=== PATIENT | female | born 1985 | race Caucasian/White ===

== ENCOUNTER → 2020-10-27 09:24 | Outpatient (CLI) | payer OTHER, SELFPAY ==
[2020-10-27 09:54] LABS: COVID19 -Nasal RAPID Negative (Negative)
== END ==
PROVIDERS: Family Provider Obstetrics & Gynecology; PCP Obstetrics & Gynecology; Visit Provider Physician Assistant
DX: J32.9 Chronic sinusitis, unspecified (principal); Z20.822 Contact with and (suspected) exposure to COVID-19
CPT/HCPCS: 87635

== ENCOUNTER → 2021-01-25 16:43 | Outpatient (CLI) | payer OTHER, SELFPAY ==
--- NOTE | 2021-01-25 16:44 | DI.RAD.S_ITS ---
PROCEDURE: XR KNEE LT 3V INDICATIONS: Progressive left anterior knee pain TECHNIQUE: 3 views of the knee were acquired. COMPARISON: None. FINDINGS: Bones: No fractures or dislocations. No suspicious bony lesions. Soft tissues: No joint effusion. No suspicious soft tissue calcifications. IMPRESSION: No trauma found, no effusion or loose body seen. Source of worsening left knee pain is not found. Dictated by: Arias Giron M.D. on 01/26/2021 at 9:11 Approved by: Arias Giron M.D. on 01/26/2021 at 9:12
[2021-01-25 18:30] LABS: C-Reactive Protein Quant < 0.5 mg/dL (<1.0)
[2021-01-25 18:42] LABS: Rheumatoid Factor < 8.6 IU/mL (<12.0)
[2021-01-25 21:02] LABS: Erythrocyte Sedimentation Rate 5 MM/HR (0-20)
[2021-01-28 21:11] LABS: CCP Antibodies IgG/IgA 5 units (0-19)
== END ==
PROVIDERS: Family Provider Obstetrics & Gynecology; PCP Family Medicine; Referring Provider Family Medicine; Visit Provider Family Medicine
DX: M25.562 Pain in left knee (principal); Z82.61 Family history of arthritis
CPT/HCPCS: 36415; 73562; 85651; 86140; 86200; 86430

== ENCOUNTER → 2021-05-10 10:41 | Outpatient (CLI) | payer OTHER, MEDICAID, SELFPAY ==
--- NOTE | 2021-05-10 10:42 | DI.US.S_ITS ---
PROCEDURE: US PELVIC COMPLETE INDICATIONS: ABNORMAL BLEEDING TECHNIQUE: Real-time scanning was performed of the pelvic organs, with image documentation. Additional endovaginal scanning was necessary due to incomplete visualization of the adnexal and endometrial structures by transabdominal scanning. COMPARISON: [facility], , PELVIC COMPLETE, 03/19/2014, 9:00. FINDINGS: Uterus: The uterine body measures 4.7 x 5.2 x 7.0 centimeters. The endometrial stripe complex measures up to 14 millimeters in double air thickness. No uterine mass. Ovaries: Simple cyst in the right ovary measuring up to 1.3 centimeters. Complex cyst with peripheral vascularity in the left ovary measuring 2.4 x 1.2 x 1.6 centimeters, likely a resolving hemorrhagic cyst or potentially corpus luteum cyst. Other: No pathologic free abdominal or pelvic fluid. IMPRESSION: Normal study. Dictated by: Chester Medina M.D. on 05/10/2021 at 11:31 Approved by: Chester Medina M.D. on 05/10/2021 at 11:34
== END ==
PROVIDERS: Family Provider Obstetrics & Gynecology; PCP Family Medicine; Referring Provider Family Medicine; Visit Provider Family Medicine
DX: N93.9 Abnormal uterine and vaginal bleeding, unspecified (principal); N94.6 Dysmenorrhea, unspecified; N92.0 Excessive and frequent menstruation with regular cycle; N83.292 Other ovarian cyst, left side; N83.291 Other ovarian cyst, right side
CPT/HCPCS: 76830; 76856

== ENCOUNTER → 2021-07-23 09:10 | Outpatient (CLI) | payer OTHER, MEDICAID, SELFPAY ==
[2021-07-23 10:57] LABS: Hematocrit 37.6 % (36-46); Hemoglobin 12.7 g/dL (12.0-16.0); Mean Corpuscular HGB Conc 33.7 % (30-36); Mean Corpuscular Hemoglobin 28.1 PG (26-34); Mean Corpuscular Volume 83.2 fL (80-100); Platelet Count 262 X10^3/uL (150-400); Red Blood Cell Count 4.52 X10^6/uL (4.0-5.2); Red Cell Distribution Width 13.8 % (11.6-14.8); White Blood Cell Count 3.9 X10^3/uL (4.5-11.0)
[2021-07-23 12:08] LABS: Free T4, Direct Thyroxine 0.88 ng/dL (0.78-2.19)
== END ==
PROVIDERS: Family Provider Obstetrics & Gynecology; PCP Family Medicine; Referring Provider Obstetrics & Gynecology; Visit Provider Obstetrics & Gynecology
DX: N92.1 Excessive and frequent menstruation with irregular cycle (principal); N93.9 Abnormal uterine and vaginal bleeding, unspecified
CPT/HCPCS: 36415; 84439; 84443; 85027

== ENCOUNTER → 2021-08-25 11:08 | Outpatient (CLI) | payer OTHER, MEDICAID, SELFPAY ==
[2021-08-25 13:56] LABS: COVID19 -Nasal RAPID Negative (Negative)
== END ==
PROVIDERS: Family Provider Obstetrics & Gynecology; PCP Family Medicine; Referring Provider Obstetrics & Gynecology; Visit Provider Obstetrics & Gynecology
DX: Z01.812 Encounter for preprocedural laboratory examination (principal); Z20.822 Contact with and (suspected) exposure to COVID-19
CPT/HCPCS: 87635; C9803

== ENCOUNTER 2021-08-26 12:28 | Day surgery (SDC) | payer OTHER, MEDICAID, SELFPAY ==
[2021-08-24 12:48] VITALS: BMI 24.5
[2021-08-26] VITALS (15 sets, daily range): BP systolic 95–121; BP diastolic 52–80; PULSE 69–98; RESP 10–29; TEMP 36.9–38.3; O2SAT 95–100; BMI 24.5
--- NOTE | 2021-08-26 | PATH_ITS ---
[facility] Accession Number: [id number] . 01 Material submitted: . uterus - CERVIX, UTERUS, BILATERAL FALLOPIAN TUBES . 02 Diagnosis: A. Designated as Cervix, Uterus, Bilateral Fallopian Tubes, Hysterectomy and Bilateral Salpingectomy: Late secretory phase endometrium with breakdown. Myometrium and uterine serosa within normal limits. Cervix with inflammation and reactive changes. Bilateral fallopian tubes with unilateral mild to moderate acute salpingitis, features of hydrosalpinx, and reactive changes. No evidence of dysplasia, neoplasia, or malignancy. . [facility] 08/31/2021 1711 Local . 02 Electronically signed: . Jillian Bergman MD, Pathologist NPI- [id number] . 01 Gross description: . The specimen is received in formalin, labeled with the patient's name and cervix, uterus, bilateral fallopian tubes, consists of a 72-gram, 7.2 cm (fundus to cervix) by 3.5 cm (anterior posterior) by 5.5 cm (cornu to cornu) uterus and cervix with attached, undesignated and bilateral fallopian tubes. The serosa is mcgill-brown, smooth and glistening. The ectocervical mucosa is mcgill-roman, smooth and glistening. The specimen is bivalved and it reveals a mcgill-roman smooth endometrial cavity which measures 3.5 x 1.5 cm. There is red-brown material present within the lumen and it likely represents blood. The myometrium is roman-white, trabeculated and smooth. Leiomyomata are not identified. Hemorrhagic foci suggestive of endometriosis are not definitively identified. The myometrium has a maximum thickness of 1.0 cm. The endocervical cavity is roman-pink and smooth measuring 1.5 x 0.5 cm. The cervical os measures 0.5 cm. The fallopian tubes measure 4.5 cm and 3.8 cm by 0.5 cm to 0.7 cm. The serosa is roman-brown and focally hemorrhagic. Sectioning reveals pinpoint lumen. Sections are submitted as follows: . A1: Anterior cervix. A2: Posterior cervix. A3-A4: Anterior endomyometrium. A5-A6: Posterior endomyometrium. A7-A8: Fallopian tubes with fimbria. ([id number]) /MRV 08/30/2021 1326 Local . 02 Pathologist provided ICD-10: R10.2, N92.0, N94.6, N70.01 . 02 CPT . 608445 Performed at: 01 [facility] [address] [place] [address] [id number] MD Paul Wu MD Phone: [phone] Performed at: [facility] [address] [place] [address] [id number] MD Fay Blank MD Phone: [phone]
--- NOTE | 2021-08-26 13:20 | SUR.OPER ---
Lithotomy on padded OR bed. Lombard Pad Positioner under torso. Head on pillow, arms padded and tucked at sides. Legs secured in padded yellow fins stirrups.
--- NOTE | 2021-08-26 13:25 | PM.PREOP ---
Pre-operative Note COVID-19 COVID-19 status: Negative Result date/Date tested (Pos, Neg/Pending): 08/25/21 Interval Note History & Physical reviewed/Exam performed by Physician: Yes Changes to H&P: No
[2021-08-26] MEDS: LACTATED RINGERS 1,000 ML 42 ML IV ×2 (13:28→15:09)
[2021-08-26] MEDS: CEFAZOLIN 2 GM/20 ML SYRINGE IV ×2 (14:02→20:04)
[2021-08-26] MEDS: BUPIVACAINE 0.5% (PF) 30 ML, EPINEPHrine 0.15 MG INJ (14:17)
[2021-08-26] MEDS: ROPIVACAINE 0.2% PF 2 MG/ML 10ML AMP 20 ML INJ (15:07)
--- NOTE | 2021-08-26 15:35 | P.OP_ITS ---
Operative Date/Time/Diagnoses Date of procedure: 08/26/21 Time of procedure: 14:15 Pre-op diagnosis: Menorrhagia Severe dysmenorrhea Chronic pelvic pain Post-op diagnosis: same Procedure & Clinicians Procedure: Procedures Operation Date: 08/26/21 13:30 Actual Procedure Side Surgeon p Laparoscopic Total Hysterectomy w/Bilateral Salpingectomy Martin Milligan MD Indications: Nidia is a 36-year-old , LMP 05/17/2021 who presents for evaluation with a long history of irregular and heavy menses associated with episodic severe pelvic pain which has been attributed to formation and rupture of ovarian cyst.? Her history dates back to 2009 through 2011 when she had multiple visits to [facility] due to severe episodic pain.? She had surgery in 2009 at [facility] at which time a fibroid was removed and an ovarian cystectomy was performed.? A 2nd and 3rd surgery were performed between 2009 [address] Naomi cifuentes at [facility] but no records of those surgeries are currently available for review.? She was however told that endometriosis was found at the time of those surgeries.? In July of 2012 she had an uneventful vaginal of her son and had no problems for a year to afterwards but in 2013 she began forming ovarian cysts on both sides and had multiple episodes of severe pain.? In 2015 she had her 2nd vaginal and since her had been doing reasonably well over the ensuing 3-4 years.? Her periods had been relatively regular and predictable but occasionally was having episodic I have with Cindy pain which could be quite severe at times.? Oral contraceptives have been attempted in the past to suppress her ovarian cyst formation but these attempts have been unsuccessful.? Periods remain regular and slow approximately March 2021 at which point she began passing bright red blood with clots and her bleeding has continued.? The patient's menstrual pain is severe, midline, and unrelieved with Tylenol or ibuprofen which upsets her stomach.? She has some deep dyspareunia but it is not severe and does not prevent intercourse.? Her l ateral pain is sudden in onset, sharp, and usually last 3-4 days after the sudden onset.? Neither of these pains are associated with any GI or or symptoms.? Pap 05/26/2021 is negative and EMBx performed 07/23/2021 is also negative.? Pelvic US performed 05/10/2021 shows: FINDINGS:? ?? Uterus:? The uterine body measures 4.7 x 5.2 x 7.0 centimeters.? The endometrial stripe complex measures up to 14 millimeters in double air thickness.? No uterine mass. ? Ovaries:? Simple cyst in the right ovary measuring up to 1.3 centimeters.? Complex cyst with peripheral vascularity in the left ovary measuring 2.4 x 1.2 x 1.6 centimeters, likely a resolving hemorrhagic cyst or potentially corpus luteum cyst. ? Other: ? No pathologic free abdominal or pelvic fluid. ? IMPRESSION:? Normal study. Options for further evaluation/management of her abnormal bleeding associated with extremely painful menses as well as the intermittent episodic pain attributed to ovarian cysts was discussed.? In a word, the patient wants definitive treatment.? The options of OC use, Mirena IUD and/or endometrial ablation, are unacceptable to the patient because no guarantee of definitive resolution of her bleeding and painful periods can be assured.? Instead the patient would very much prefer to have hysterectomy performed.? Or insofar as her episodic pelvic pain attributed to ovarian cysts, the patient would be content with removal of the ovaries but such a step would be drastic and was discouraged in favor of continued attempts to suppress the ovarian cycle via oral contraceptive use following hysterectomy should her pain persist.? In addition total laparoscopic hysterectomy will provide an opportunity to examine the pelvis and removed/destroyed any residual endometriosis which may be pre sent.? After full discussion of all available options the patient is insistent we proceed with total laparoscopic hysterectomy and bilateral salpingectomy with ovarian preservation.? Excision/destruction of endometrial implants would be performed at the same time should they be present.? The patient's surgery is scheduled for the [facility] on 08/26/2021 and she presents today for her scheduled surgery. Surgeon: [facility] Medical Director: Flaquita Luciano Anesthesia Type: General Operative Notes Findings: The uterus is normal in size and shape. Both the anterior and posterior cul-de-sac are normal with no evidence of pelvic endometriosis. The fallopian tubes appeared normal but there is peritubal adhesions involving the distal tube on the right as well as the right ovary consistent with prior pelvic inflammatory disease. Both ovaries appear normal but there is a 2 cm cyst in the left ovary which when punctured contained clear, light yellow fluid consistent with a corpus luteum cyst. The appendix is visibly normal. 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 The remainder of the abdomen and pelvis were normal to laparoscopic visualization Closure Type: primary Specimen(s): left tube, right tube and uterus Applied: catheter Estimated blood loss (mL): 150 Blood products transfused: none Procedure in detail: With the patient under satisfactory general endotracheal anesthesia in the modified dorsal lithotomy position, the perineum, vagina, and abdomen were prepped and draped in the usual fashion for total laparoscopic hysterectomy a pre-surgical safety time-out was then taken in accordance with [facility] Main OR protocols. Borden catheter was inserted in the bladder for drainage. A speculum was then inserted in the vagina and the cervix visualized. Cervix was grasped with a single-tooth tenaculum in the endocervical canal was dilated easily to 6 mm. A Mobile Shareholder uterine manipulator with a medium colpotomy cup was then placed and the tenaculum as well as the speculum removed from the vagina. The umbilicus was infiltrated with 0.5% Marcaine with epinephrine and a 1 cm transverse subumbilical incision was made. A Veress needle was then used to insufflate the abdomen with carbon dioxide and once insufflated a 5 mm bladeless trocar and sleeve were placed through the umbilical incision. The presence of the sleeve in the abdominal cavity was then confirmed with the laparoscoped and a 2nd and 3rd laparoscopic 5 mm port was placed in the left and right mid quadrants using the same technique as the umbilicus. Using a 3 puncture technique, the pelvis and abdomen were thoroughly visualized with the findings as noted previously. The distal tube on the right was then grasped with a grasping forcep and the mesosalpinx coagulated and divided with the LigaSure dev ice. The LigaSure device was then used to coagulate and divide the mesosalpinx, the utero-ovarian ligament, and the round ligament with the dissection carried down the lateral aspect of the uterus on the right side to the level of the colpotomy cup. The bladder flap was initiated from the right side and developed over the rim of the colpotomy cup and the vessels coagulated and divided on the right side. The peritoneum posteriorly was also skeletonized along the line of the colpotomy cup and attention was then turned to the left adnexa. The left fallopian tube was grasped at its distal portion and the fimbriae ovarica followed by the mesosalpinx, utero-ovarian ligament, and round ligament were coagulated and divided with the LigaSure device. The dissection was then carried down the lateral aspect of the uterus on the left-hand side to the level of the colpotomy cup and the bladder flap was easily completed. The vessels on the left side were then taken with the LigaSure and dissection and skeletonization of the peritoneum posteriorly was completed overlying the colpotomy cup. At that point a monopolar J-hook was used to incise the vaginal mucosa over the colpotomy cup and once the uterus was detached completely, the uterus was delivered vaginally. The vaginal cuff was then fully visualized and closed from below with 0 Vicryl [id number]-njxun stitches resulting in complete hemostasis of the cuff. The abdomen was then reinsufflated and the pelvis inspected laparoscopically. The pelvis was thoroughly irrigated and visualized with no bleeding noted and active peristalsis of both ureters documented. 20 cc of ropivacaine were then placed in the cul-de-sac and the pneumoperitoneum vented. The laparoscopic ports were then removed and the laparoscopic port incisions closed with 4-0 Monocryl using inverted interrupted stitches. Skin glue was applied followed by appropriate dressings and the patient was then awaken from anesthesia. She was then transferred to the recovery room after having tolerated the procedure well. Complications: none Post-operative Condition: stable Disposition: PACU Plan for aftercare: Routine postoperative care.
[2021-08-26] MEDS: OXYCODONE/ACETAMINOPHEN 5/325 TABLET 1 TAB PO ×3 (15:50→20:03)
[2021-08-26] MEDS: fentaNYL 100 MCG/2 ML INJ IV ×2 (15:54→15:59)
--- NOTE | 2021-08-26 16:21 | SUR.PHASEI ---
1615 C/O back and abdominal very severe. Dr Milligan notified. Assessed patient. Looks ok, with abdomen soft according to him. Ice pack applied. Dr Nj here and gave patient 0.5 mg of dilaudid
[2021-08-26] MEDS: LACTATED RINGERS 1,000 ML 100 ML IV (17:16)
[2021-08-26] MEDS: MORPHINE 4 MG/ML INJ IV (17:24)
--- NOTE | 2021-08-26 17:47 | PC.ADMIT ---
[email or web address] Admission Note: The patient,Kerry Lucas,36 y/o, was given written information regarding hospital policies, unit procedures and contact persons. Patient's smoking status: Former smoker. Pt arrived from PACU. A/O. Reports in 01/21 despite analgesics given in Surgical dept. Morphine given per MAR. Dr. Milligan in for examination. Drsgs x3 to abd c/d/i. Maura-pad with scant drainage. Borden draining yellow urine to gravity. Oriented to room and call system. Vital Signs - 8 hr 08/26/21 12:38 08/26/21 15:40 08/26/21 15:41 Temperature 98.9 F 98.9 F Pulse Rate 81 98 H 77 Respiratory Rate 16 14 10 L Blood Pressure 103/60 121/52 L 106/62 Pulse Oximetry 100 100 98 08/26/21 15:46 08/26/21 15:50 08/26/21 16:12 Temperature Pulse Rate 76 77 88 Respiratory Rate 14 20 29 H Blood Pressure 110/64 104/62 115/61 Pulse Oximetry 99 95 100 08/26/21 16:33 08/26/21 16:42 08/26/21 16:55 Temperature 98.4 F Pulse Rate 80 70 70 Respiratory Rate 20 12 16 Blood Pressure 107/66 102/80 104/78 Pulse Oximetry 100 98 99 08/26/21 17:09 Temperature 98.5 F Pulse Rate 69 Respiratory Rate 16 Blood Pressure 95/56 L Pulse Oximetry 96
--- NOTE | 2021-08-26 17:57 | PM.PNPO.1 ---
Subjective Subjective Date Patient Seen: 08/26/21 Time Patient Seen: 17:57 Interval history: Patient has been experiencing more pain than is typical following TLH. Pain is difficult for her to characterize. She she described it as burning sharp, dull, and the pain has been appreciated at various locations ranging from the right flank/lower back to the suprapubic area, and the entire lower abdomen. She hasn't experienced any nausea except during epsodes of severe pain. She has not yet passed gas. She doesn't have much of an appetite yet. Exam Vital Signs (past 8 hours): - 08/26/21 12:38 08/26/21 15:40 08/26/21 15:41 Temperature 98.9 F 98.9 F Pulse Rate 81 98 H 77 Respiratory Rate 16 14 10 L Blood Pressure 103/60 121/52 L 106/62 Pulse Oximetry 100 100 98 08/26/21 15:46 08/26/21 15:50 08/26/21 16:12 Temperature Pulse Rate 76 77 88 Respiratory Rate 14 20 29 H Blood Pressure 110/64 104/62 115/61 Pulse Oximetry 99 95 100 08/26/21 16:33 08/26/21 16:42 08/26/21 16:55 Temperature 98.4 F Pulse Rate 80 70 70 Respiratory Rate 20 12 16 Blood Pressure 107/66 102/80 104/78 Pulse Oximetry 100 98 99 08/26/21 17:09 08/26/21 17:34 Temperature 98.5 F 98.6 F Pulse Rate 69 72 Respiratory Rate 16 16 Blood Pressure 95/56 L 97/54 L Pulse Oximetry 96 96 Oxygen Delivery Method Room Air Oxygen Flow Rate 0 Const General: cooperative and in distress (due to abdominal pain and worry) Nutritional Appearance: average body habitus Orientation: alert and oriented x3 HENMT Head: normal to inspection Eyes General: appearance normal, both eyes and all related structures Resp Effort & Inspection: normal respiratory effort and able to speak in complete sentences GI Inspection: normal to inspection, non-distended, incision (Dressings clean and dry) and no visible herniation Palpation: soft, no hepatosplenomegaly and tender (Diffuse, greatest in the lower quadrants) Auscultation: normoactive bowel sounds General: other (Deferred) [facility] Medical History Abnormal Pap smear of cervix Abnormal uterine bleeding (AUB) Chronic parametritis Endometriosis Family history of rheumatoid arthritis Fibroids History of endometriosis Left knee pain Ovarian cyst Pelvic pain Preventative health care Sinusitis Surgical History Anesthesia History of hand surgery Status post laparoscopy (10/20/09) Status post ovarian cystectomy (05/11/10) Family History Father Mental health problem Bleeding in brain Mother Rheumatoid arthritis Alzheimer's disease Sister Spinal disorder Grandfather Stroke Grandmother Alzheimer's disease Grandfather History of quadruple bypass Grandmother Sundowning Social History household members: significant other Smoking Status: Former smoker alcohol intake: current Assessment & Plan Post-op Postoperative Procedures: Procedures Operation Date: 08/26/21 13:30 Actual Procedure Side Surgeon p Laparoscopic Total Hysterectomy w/Bilateral Salpingectomy Martin Milligan MD Postoperative day: 0 Postoperative status narrative: Patient's pain is substantially greater than is typical after a TLH. The characteristics of it however are difficult to assess and the potential etiologies challenging to define. While it is most likely poorly tolerated gas pains, one possibility is an undiagnosed bowel injury and as a precaution will initiate IV metronidazole and Ancef. Another possibility would be a ureteral or bladder injury however unlikely. Postoperative plan narrative: 1. Simethicone drops 2. Ancef 2 mgs, Metronidazole 500 mg q 8 hrs. 3. Continue active pain management 4. If pain doesn't kennedy, or her condition worsens, ABD CT and surgical consultation would be appropriate in anticipation of surgical re-exploration. Time Spent With Patient Time with patient: 15-24 minutes
[2021-08-26] MEDS: metroNIDAZOLE 500 MG/100 ML PIGGYBACK 100 MG IV (18:58)
[2021-08-26] MEDS: SIMETHICONE 80 MG TABLET 40 MG PO (20:03)
[2021-08-26] MEDS: DOCUSATE 100 MG CAPSULE 200 MG PO (20:53)
[2021-08-27] MEDS: OXYCODONE/ACETAMINOPHEN 5/325 TABLET 1 TAB PO ×2 (03:14→08:29)
[2021-08-27] MEDS: metroNIDAZOLE 500 MG/100 ML PIGGYBACK 100 MG IV (03:16)
[2021-08-27 03:42] VITALS: BP 101/58; PULSE 76; RESP 16; TEMP 36.9; O2SAT 98
[2021-08-27] MEDS: CEFAZOLIN 2 GM/20 ML SYRINGE IV (04:44)
[2021-08-27] MEDS: LACTATED RINGERS 1,000 ML 100 ML IV (04:44)
--- NOTE | 2021-08-27 04:49 | PC.NURSE ---
Pt was complaining of discomfort by Borden, provider okay Borden to be removed using nursing protocol. Borden was removed around 0320. Patient attempted to void and had a small unmeasured amount, will attempt again throughout shift. Pt has until 1225 to void.
[2021-08-27 05:26] LABS: Add Manual Diff / Slide Review NO; Basophils Absolute Auto 0 /uL (0-100); Basophils Percent Auto 0.4 % (0-2); Eosinophils Absolute Auto 0 /uL (0-450); Hematocrit 32.9 % (36-46); Hemoglobin 11.1 g/dL (12.0-16.0); Lymphocytes Absolute Auto 700 /uL (1100-4500); Lymphocytes Percent Auto 6.3 % (25-40); Mean Corpuscular HGB Conc 33.9 % (30-36); Mean Corpuscular Hemoglobin 27.8 PG (26-34); Monocytes Absolute Auto 600 /uL (0-900); Monocytes Percent Auto 5.9 % (3-14); Neutrophils Absolute Auto 9400 /uL (1500-7000); Neutrophils Percent Auto 87.4 % (50-75); Platelet Count 306 X10^3/uL (150-400); Red Blood Cell Count 4.01 X10^6/uL (4.0-5.2); Red Cell Distribution Width 13.2 % (11.6-14.8); White Blood Cell Count 10.8 X10^3/uL (4.5-11.0)
[2021-08-27] MEDS: LEVOTHYROXINE 75 MCG TABLET PO (06:07)
--- NOTE | 2021-08-27 07:47 | P.DS_ITS ---
History of Present Illness History of Present Illness Date Patient Seen: 08/27/21 Time Patient Seen: 07:47 Chief complaint: Menorrhagia Narrative: Menorrhagia Dysmenorrhea Chronic pelvic pain Discharge Providers Provider Date of admission: 08/26/2021 Discharge Date: 08/27/21 Primary care physician: Art Eubanks DO Discharge provider: Martin Milligan MD Summary Hospital Course Discharge Diagnosis: Status post total laparoscopic hysterectomy with bilateral salpingectomy for menorrhagia, dysmenorrhea, and chronic pelvic pain Hospital Course: On the afternoon of 08/26/2021, patient underwent an uneventful total laparoscopic hysterectomy with bilateral salpingectomy. Details of the pr ocedure well summarized on my operative note of that date. Following surgery the patient did extremely well with prompt return of bowel and bladder function, is ambulating independently, tolerating a regular diet, and her pain is well controlled with oral medications. She will be discharged at this time minute afebrile normotensive condition to home with medications to include Tramadol 100 mg p.o. q.4 hours as needed for pain x3 days and the patient will transition to Tylenol and/or ibuprofen. Prior to discharge the patient was counseled regarding precautionary symptoms, limitations of activity, medications, and plans for follow-up which will be in 2 weeks. Status at Discharge Cognitive/behavioral status at discharge: oriented Functional status at discharge: independent ambulation Overall status at discharge: patient is progressing back to baseline Time Spent with Patient Time spent: Less than 30 minutes Exam Vital Signs (past 8 hours): - 08/27/21 03:42 Temperature 98.5 F Pulse Rate 76 Respiratory Rate 16 Blood Pressure 101/58 L Pulse Oximetry 98 Oxygen Delivery Method Room Air Oxygen Flow Rate 0 Const General: cooperative, comfortable and well developed Nutritional Appearance: average body habitus Orientation: alert and oriented x3 HENMT Head: normal to inspection Eyes General: appearance normal, both eyes and all related structures Neck Neck: normal visual inspection Resp Effort & Inspection: normal respiratory effort and able to speak in complete sen tences Cardio Rate: regular rate Rhythm: regular rhythm Heart Sounds: S1 normal, S2 normal and no murmurs GI Inspection: normal to inspection and incision (Dressings clean and dry) Palpation: soft, no hepatosplenomegaly and tender (Mild, diffuse postsurgical lower abdominal discomfort) External Female Exam: other (No vaginal bleeding noted) Extrem General: no calf tenderness Psych Appearance: grossly normal Mental Status: mental status grossly normal Speech and Movement: speech and movement normal Mood: congruent mood Affect: normal affect Attitude: cooperative Thought Process: normal Thought Content: normal Judgment: judgment good Objective Labs Result Diagrams: 08/27/21 05:02 Labs: Laboratory Results - last 24 hr 08/27/21 05:02 WBC 10.8 RBC 4.01 Hgb 11.1 L Hct 32.9 L MCV 82.0 MCH 27.8 MCHC 33.9 RDW 13.2 Plt Count 306 Neut % (Auto) 87.4 H Lymph % (Auto) 6.3 L Morris % (Auto) 5.9 Eos % (Auto) 0.0 L Baso % (Auto) 0.4 Neut # (Auto) 9400 H Lymph # (Auto) 700 L Morris # (Auto) 600 Eos # (Auto) 0 Baso # (Auto) 0 PFSH Medical History Abnormal Pap smear of cervix Abnormal uterine bleeding (AUB) Chronic parametritis Endometriosis Family history of rheumatoid arthritis Fibroids History of endometriosis Left knee pain Ovarian cyst Pelvic pain Preventative health care Sinusitis Surgical History Anesthesia History of hand surgery Status post laparoscopy (10/20/09) Status post ovarian cystectomy (05/11/10) Family History Father Mental health problem Bleeding in brain Mother Rheumatoid arthritis Alzheimer's disease Sister Spinal disorder Grandfather Stroke Grandmother Alzheimer's disease Grandfather History of quadruple bypass Grandmother Sundowning Social History household members: significant other Smoking Status: Former smoker alcohol intake: current Discharge Assessment & Plan Assessment and Plan Assessment: Or status post total laparoscopic hysterectomy with bilateral salpingectomy for menorrhagia, dysmenorrhea, and chronic pelvic pain Plan of Treatment: Routine postoperative care with follow-up scheduled in 2 weeks. Discharge Plan Discharge Plan Patient Disposition: Home Provider Discharge Comment: Please review the written instructions you received at the time of discharge. Your follow-up appointment is scheduled for two weeks following your surgery and I look forward to seeing you then. If in the meanwhile you have any problems or concerns please contact me either through the office phone or via the [facility] patient portal. Discharge orders & Medications Discharge Orders: Discharge (Order); Ordered 08/27/21 Ordered By: Martin Milligan Prescriptions: New oxycodone-acetaminophen 5-325 mg Tablet 1 tab PO Q4HR PRN (Reason: Pain, Moderate (4-6)) Qty: 20 0RF Continued levothyroxine 75 mcg tablet 75 mcg PO DAILY Qty: 90 1RF Medication counseling provided by Pharmacist: Yes Follow up/Referrals: Art Eubanks, [Primary Care Provider] - Diet/Activity/Treatments Diet: Diet as Tolerated Activity: As tolerated Skin/Wound/Dressing Care Report to your healthcare provider any signs of infection, such as:: chills, fever, increased pain, unusual drainage and unusual redness Dressing: Remove dressings on the morning of 08/28/2021 Visit Report/Discharge Packet Instructions: DI for Hysterectomy, DI for Laparoscopy, DI for Prescription Opioid Use Stand Alone Forms: Surgery Discharge Print Language: Togolese Discharge Data Primary Care Provider: Art Eubanks Attending Provider: Martin Milligan
[2021-08-27] MEDS: DOCUSATE 100 MG CAPSULE 200 MG PO (08:29)
[2021-08-27 09:15] VITALS: BP 102/53; PULSE 92; RESP 16; TEMP 36.4; O2SAT 100
--- NOTE | 2021-08-27 12:42 | PC.NURSE ---
Discharged by provider to home. Pt verbalized understanding of all written and verbal instructions. IV removed. Pt dressed and escorted off unit in stable condition with all personal belongings.
== END 2021-08-27 11:30 | disposition home or self-care (01) ==
LOC: OR 12:29 → AC 12:34
PROVIDERS: Family Provider Obstetrics & Gynecology; PCP Family Medicine; Referring Provider Obstetrics & Gynecology; Visit Provider Obstetrics & Gynecology
PROC: 0UT94ZZ Resection of Uterus, Percutaneous Endoscopic Approach (ICD-10-PCS; CPT 58571; principal; 2021-08-26 13:30)
DX: N92.0 Excessive and frequent menstruation with regular cycle (principal); N94.6 Dysmenorrhea, unspecified; F17.210 Nicotine dependence, cigarettes, uncomplicated; N70.01 Acute salpingitis
CPT/HCPCS: 58571; 36415; 81025; 85025; J0171; J0330; J0690; J1100; J1170; J2270; J2405; J2704; J2795; J3010

== ENCOUNTER → 2024-07-05 09:09 | Outpatient (CLI) | payer OTHER, MEDICAID, SELFPAY ==
[2021-08-26 17:02] VITALS: BMI 24.5
[2024-07-05 10:24] LABS: Add Manual Diff / Slide Review NO; Basophils Absolute Auto 0 /uL (0-100); Basophils Percent Auto 1.1 % (0-2); Eosinophils Absolute Auto 100 /uL (0-450); Eosinophils Percent Auto 2.4 % (2-4); Hematocrit 38.3 % (36-46); Hemoglobin 12.9 g/dL (12.0-16.0); Lymphocytes Absolute Auto 1300 /uL (1100-4500); Lymphocytes Percent Auto 27.5 % (25-40); Mean Corpuscular HGB Conc 33.8 % (30-36); Mean Corpuscular Hemoglobin 28.3 PG (26-34); Mean Corpuscular Volume 83.8 fL (80-100); Monocytes Absolute Auto 400 /uL (0-900); Monocytes Percent Auto 8.2 % (3-14); Neutrophils Absolute Auto 2800 /uL (1500-7000); Neutrophils Percent Auto 60.8 % (50-75); Platelet Count 288 X10^3/uL (150-400); Red Blood Cell Count 4.57 X10^6/uL (4.0-5.2); Red Cell Distribution Width 13.7 % (11.6-14.8); White Blood Cell Count 4.6 X10^3/uL (4.5-11.0)
[2024-07-05 10:44] LABS: Alanine Aminotransferase 16 IU/L (<35); Albumin 4.3 g/dL (3.5-5.0); Albumin Globulin Ratio 1.6 (1.0-2.8); Alkaline Phosphatase 59 U/L (38-126); Aspartate Aminotransferase 22 IU/L (14-36); BUN Creatinine Ratio 17.6 (6-22); Bilirubin Total 0.8 mg/dL (0.2-1.3); Blood Urea Nitrogen 13 mg/dL (7-17); Calcium 9.1 mg/dL (8.4-10.2); Carbon Dioxide 25 mmol/L (22-32); Chloride 105 mmol/L (98-107); Cholesterol 231 mg/dL (140-199); Estimated Glomerular Filt Rate > 60 mL/min (>60); Globulin 2.7 g/dL (1.7-4.1); Glucose 101 mg/dL (70-100); HDL Cholesterol 57 mg/dL (40-60); HEMOLYSIS < 15 (0-50); LDL Cholesterol Calculated 163 mg/dL (<100); Potassium 4.2 mmol/L (3.4-5.1); Sodium 138 mmol/L (137-145); Triglycerides 56 mg/dL (35-150)
[2024-07-05 10:55] LABS: Free T4, Direct Thyroxine 0.68 ng/dL (0.78-2.19)
[2024-07-05 11:09] LABS: Thyroid Stimulating Hormone 25.2 uIU/mL (0.47-4.68)
== END ==
PROVIDERS: Family Provider Obstetrics & Gynecology; PCP Family Medicine; Referring Provider Family Medicine; Visit Provider Family Medicine
DX: Z00.00 Encounter for general adult medical examination without abnormal findings (principal); E03.9 Hypothyroidism, unspecified; D64.9 Anemia, unspecified
CPT/HCPCS: 36415; 80053; 80061; 84439; 84443; 85025

== ENCOUNTER → 2024-10-18 15:15 | Outpatient (CLI) | payer OTHER, SELFPAY ==
[2021-08-26 17:02] VITALS: BMI 24.5
[2024-10-18 16:21] LABS: Add Manual Diff / Slide Review NO; Basophils Absolute Auto 0 /uL (0-100); Basophils Percent Auto 0.8 % (0-2); Eosinophils Absolute Auto 100 /uL (0-450); Eosinophils Percent Auto 2.3 % (2-4); Hematocrit 35.8 % (36-46); Hemoglobin 12.2 g/dL (12.0-16.0); Lymphocytes Absolute Auto 1300 /uL (1100-4500); Lymphocytes Percent Auto 22.6 % (25-40); Mean Corpuscular Hemoglobin 27.8 PG (26-34); Mean Corpuscular Volume 81.8 fL (80-100); Monocytes Absolute Auto 500 /uL (0-900); Monocytes Percent Auto 8.1 % (3-14); Neutrophils Absolute Auto 3700 /uL (1500-7000); Neutrophils Percent Auto 66.2 % (50-75); Platelet Count 281 X10^3/uL (150-400); Red Blood Cell Count 4.38 X10^6/uL (4.0-5.2); Red Cell Distribution Width 13.3 % (11.6-14.8); White Blood Cell Count 5.6 X10^3/uL (4.5-11.0)
[2024-10-18 16:33] LABS: Alanine Aminotransferase 17 IU/L (<35); Albumin 4.3 g/dL (3.5-5.0); Albumin Globulin Ratio 1.7 (1.0-2.8); Alkaline Phosphatase 65 U/L (38-126); Aspartate Aminotransferase 21 IU/L (14-36); BUN Creatinine Ratio 21.5 (6-22); Bilirubin Total 0.4 mg/dL (0.2-1.3); Blood Urea Nitrogen 14 mg/dL (7-17); Calcium 8.9 mg/dL (8.4-10.2); Carbon Dioxide 24 mmol/L (22-32); Chloride 103 mmol/L (98-107); Cholesterol 199 mg/dL (140-199); Estimated Glomerular Filt Rate > 60 mL/min (>60); Globulin 2.6 g/dL (1.7-4.1); Glucose 103 mg/dL (70-100); HDL Cholesterol 59 mg/dL (40-60); HEMOLYSIS < 15 (0-50); LDL Cholesterol Calculated 119 mg/dL (<100); Potassium 3.8 mmol/L (3.4-5.1); Sodium 137 mmol/L (137-145); Total Protein 6.9 g/dL (6.3-8.2); Triglycerides 104 mg/dL (35-150)
[2024-10-18 16:52] LABS: Free T4, Direct Thyroxine 1.62 ng/dL (0.78-2.19)
[2024-10-18 17:07] LABS: Thyroid Stimulating Hormone < 0.015 uIU/mL (0.47-4.68)
== END ==
PROVIDERS: Family Provider Obstetrics & Gynecology; PCP Family Medicine; Referring Provider Family Medicine; Visit Provider Family Medicine
DX: D64.9 Anemia, unspecified (principal); E03.9 Hypothyroidism, unspecified; E78.5 Hyperlipidemia, unspecified
CPT/HCPCS: 36415; 80053; 80061; 84439; 84443; 85025